=== PATIENT | male | born 1940 | race Caucasian/White ===

== ENCOUNTER 2018-11-10 18:42 | Emergency (ER) | payer OTHER ==
[~2018-11-10] VITALS: Ht 182.9 cm; Wt 108.9 kg
[2018-11-10 18:42] VITALS: BP_SYST 141
--- NOTE | 2018-11-10 18:42 | NUR ---
BROUGHT IN BY [facility], PLACED IN BED #5 AND TRIAGED. REPORT GIVEN TO JOSIAH
--- NOTE | 2018-11-10 18:43 | NUR ---
PT AAOx4 BIB BLS c/o nausea/dizziness s/p taking norco. Pt had recent TKR sx to L knee x 1 week ago. Denies pain. Actively vomiting in triage. No other injuries/complaints per pt/noted. Will continue to monitor.
--- NOTE | 2018-11-10 18:52 | NUR ---
TRAVIS Hahn at bedside examining patient.
[2018-11-10] MEDS ORDERED: NACL 0.9% 1,000 ML IV ONE (19:00)
[2018-11-10] MEDS ORDERED: METOCLOPRAMIDE HCL 10 MG/2 ML VIAL IVP ONE (19:00)
--- NOTE | 2018-11-10 19:07 | NUR ---
Medication administered. PT tolerated well. No adverse reactions noted.
[2018-11-10] MEDS ORDERED: LOSA100T3 PO (19:33)
[2018-11-10] MEDS ORDERED: GLUXR500 PO (19:33)
[2018-11-10] MEDS ORDERED: HYT1 PO (19:33)
[2018-11-10] MEDS ORDERED: ASPI-1155 PO (19:33)
[2018-11-10] MEDS ORDERED: AMLO5TAB4 PO (19:33)
[2018-11-10] MEDS ORDERED: HYDR12.55 PO (19:33)
[2018-11-10 19:35] LABS: BASOPHILS % (AUTO) 0.3 % (0.0-2.0); EOSINOPHILS # (AUTO) 0.1 K/uL (0.0-0.4); EOSINOPHILS % (AUTO) 1.5 % (0.0-4.0); HEMATOCRIT 34.1 % (36-54); HEMOGLOBIN 11.4 g/dL (14.0-18.0); LYMPHOCYTES # (AUTO) 1.7 K/uL (1.0-5.5); LYMPHOCYTES % (AUTO) 19.1 % (20.5-51.5); MEAN CORPUSCULAR HEMOGLOBIN 32 pg (27-31); MEAN CORPUSCULAR HGB CONC 34 % (32-36); MEAN CORPUSCULAR VOLUME 95 fL (79.0-98.0); MONOCYTES # (AUTO) 0.9 K/uL (0.0-1.0); MONOCYTES % (AUTO) 10.1 % (1.7-9.3); NEUTROPHILS # (AUTO) 6.2 K/uL (1.8-7.7); PLATELET COUNT (AUTO) 319 K/uL (130-430); RED BLOOD CELL COUNT(AUTO) 3.59 MIL/uL (4.2-6.2); RED CELL DISTRIBUTION WIDTH 13.5 % (9.0-15.0); WHITE BLOOD COUNT (AUTO) 9.1 K/uL (4.8-10.8)
[2018-11-10 19:38] LABS: ANION GAP 13 (5-15); CALCIUM 9.3 mg/dL (8.4-11.0); CHLORIDE 100 mmol/L (98-107); CREATININE 1.36 mg/dL (0.55-1.30); GLUCOSE 164 mg/dL (70-99); POTASSIUM 3.9 mmol/L (3.5-5.1); SODIUM SERUM 137 mmol/L (136-145); UREA NITROGEN, BLOOD 22 mg/dL (8-21)
[2018-11-10 19:46] LABS: ALANINE AMINOTRANSFERASE 23 U/L (12-78); ALBUMIN 3.3 g/dL (3.4-4.8); ASPARTATE AMINOTRANSFERASE 29 U/L (10-37); TOTAL BILIRUBIN 0.6 mg/dL (0.0-1.0)
--- NOTE | 2018-11-10 20:33 | NUR ---
Pt requested discharge paperwork. Pt has sleep apnea and needs his cpap machine. Dr. Jennings notified.
--- NOTE | 2018-11-10 21:24 | NUR ---
ER Dr. Jennings at bedside examining patient.
--- NOTE | 2018-11-10 21:30 | NUR ---
Patient given PO challege with 4 oz of water. Patient tolerated well.
--- NOTE | 2018-11-10 22:01 | NUR ---
Patient able to hold liquids. MD notified.
--- NOTE | 2018-11-10 22:17 | NUR ---
Patient given written and verbal discharge instructions and verbalizes understanding. ER MD Jennings discussed with patient the results and treatment provided. Patient in stable condition. ID arm band removed. IV catheter removed intact and dressing applied, no active bleeding. Rx of Zofran given. Patient educated on pain management and to follow up with PMD. Pain Scale 0. Opportunity for questions provided and answered. Medication side effect fact sheet provided.
[2018-11-10 22:18] VITALS: BP_SYST 138
== END 2018-11-10 22:17 | disposition home or self-care (01) ==
LOC: SED 18:42
DX: R11.2 Nausea with vomiting, unspecified (principal); Z79.84 Long term (current) use of oral hypoglycemic drugs; Z79.82 Long term (current) use of aspirin; Z79.899 Other long term (current) drug therapy
CPT/HCPCS: 36415; 80053; 84484; 85025; 93005; 96361; 96374; 99284; J2765; J7030

== ENCOUNTER 2021-09-24 14:40 | Emergency (ER) | payer OTHER ==
[~2021-09-24] VITALS: Ht 185.4 cm; Wt 108.9 kg
[~2021-09-24 14:40] MED LIST: AMLO5TAB4 PO; ASPI-1155 PO; GLUXR500 PO; HYDR12.55 PO; HYT1 PO; LOSA100T3 PO
--- NOTE | 2021-09-24 14:45 | NUR ---
Patient to ER bed 2 . Side rails up.
[2021-09-24 14:49] VITALS: BP_SYST 167
--- NOTE | 2021-09-24 14:52 | NUR ---
Pt to bed #2 coming from home ambulatory with steady gait. Pt is A&Ox4. Pt c/o jamming right pinky finger against his garage door at home and caused a laceration to happen. There is active bleeding present. Bleeding has been controlled. Laceration was cleaned with normal saline and betadine. Lac tray at bedside for Dr. Vela. NKA. Pt has hx of DM and HTN. No chest pain and no sob. Denies n/v. Bed in lowest position.
--- NOTE | 2021-09-24 14:56 | NUR ---
Dr. Vela at bedside examining pt.
[2021-09-24] MEDS ORDERED: DIPH-TET-PERTUS Vaccine 0.5 ML VIAL (ADACEL) I.M. ONE (15:00)
[2021-09-24] MEDS ORDERED: LIDOCAINE 1% 10 MG/ML, 20 ML MDV SUBCUT ONE (15:00)
--- NOTE | 2021-09-24 15:15 | NUR ---
Called pharmacy to bring TDAP medication due to there aubree none here in the pyxis. Pharmacy stated to use the TDAP BOOSTRIX not ADACEL.
--- NOTE | 2021-09-24 16:21 | NUR ---
X-Ray being done at bedside.
[2021-09-24] MEDS ORDERED: CEPH-548 PO (18:08)
--- NOTE | 2021-09-24 18:23 | NUR ---
Dressed: Basitrasin, Non-adherent gauze, 3" conforming gauze, metal splint, & tubular gauze.
[2021-09-24 18:25] VITALS: BP_SYST 136
--- NOTE | 2021-09-24 18:28 | NUR ---
Patient given written and verbal discharge instructions and verbalizes understanding. ER MD discussed with patient the results and treatment provided. Patient in stable condition. ID arm band removed. Rx of Cephalexin given. Patient educated on pain management and to follow up with PMD. Pain Scale . Opportunity for questions provided and answered. Medication side effect fact sheet provided.
== END 2021-09-24 18:25 | disposition home or self-care (01) ==
LOC: SED 14:40
DX: S62.636A Displaced fracture of distal phalanx of right little finger, initial encounter for closed fracture (principal); S61.216A Laceration without foreign body of right little finger without damage to nail, initial encounter; W23.0XXA Caught, crushed, jammed, or pinched between moving objects, initial encounter; Y93.89 Activity, other specified; Y92.89 Other specified places as the place of occurrence of the external cause; Y99.8 Other external cause status
CPT/HCPCS: 90715; 99283

== ENCOUNTER 2021-09-27 11:04 | Emergency (ER) | payer OTHER ==
[~2021-09-27] VITALS: Ht 185.4 cm; Wt 108.9 kg
[~2021-09-27 11:04] MED LIST changes: +CEPH-548 PO
--- NOTE | 2021-09-27 11:10 | NUR ---
Pt brought by self, A&Ox4, pt presents to ER with wound on R hand after hand was stock on the door last thursday, skin pink and warm, cap refill <3, VSS, respirations even and unlabored.
[2021-09-27 11:24] VITALS: BP_SYST 142
--- NOTE | 2021-09-27 11:30 | NUR ---
Dr Lin evaluating patient at bedside
--- NOTE | 2021-09-27 12:48 | NUR ---
Re-dresses wound with non-adherent dressig, strech gauze, & tubular gauze.
[2021-09-27 12:50] VITALS: BP_SYST 142
--- NOTE | 2021-09-27 12:51 | NUR ---
Patient given written and verbal discharge instructions and verbalizes understanding. ER MD discussed with patient the results and treatment provided. Patient in stable condition. ID arm band removed. No Rx given. Patient educated on pain management and to follow up with PMD. Pain Scale 1/10. Opportunity for questions provided and answered. Medication side effect fact sheet provided.
== END 2021-09-27 12:50 | disposition home or self-care (01) ==
LOC: SED 11:04
DX: S61.206A Unspecified open wound of right little finger without damage to nail, initial encounter (principal); E11.9 Type 2 diabetes mellitus without complications; W23.1XXA Caught, crushed, jammed, or pinched between stationary objects, initial encounter; Y93.89 Activity, other specified; Y92.89 Other specified places as the place of occurrence of the external cause; Y99.8 Other external cause status
CPT/HCPCS: 99282